=== PATIENT | female | born 1970 | race Two or more races ===

== ENCOUNTER 2023-12-18 16:12 | Outpatient (AMB) | payer MEDICAID, SELFPAY ==
--- NOTE | 2023-12-18 16:10 | PD.ORTHCLVIS ---
Med/Allergies Allergies & Medications Allergies No Known Allergies Allergy (Verified 12/07/23 08:30) Subjective Visit Visit for: new patient and knee (BILATERAL) Immunization / Flu Flu Vaccine in the Last 12 Months: Yes Flu Vaccine Exclusion Criteria: Already Received History of Present Illness Chief complaint: BILATERAL KNEE PAIN Patient is a pleasant 53-year-old female with bilateral knee pain worse on the left. This been ongoing for several years. She has tried formal physical therapy as well as over 8 injections in both knees. She is also tried anti-inflammatories. The pain is affecting her quality life and happiness. She reports that her knees are curving inward and it is making her life miserable. Personal History Occupation: [employer] Hobbies: WALKING Pain Pain level (0-10): 8 Pain duration: CONSTANT Pain location: inside (medial) and outside (lateral) Pain quality: sharp, dull and aching Pain timing: night, increases with activity and stairs Associated signs & symptoms: weakness and none Treatments Number of previous injections: 8 Improvement with previous injections: No Improvement with PT: No Improvement with NSAIDS: no Review of Systems Review of Systems: All systems negative unless otherwise noted in HPI. Exam Exam Xrays from [facility] demonstrate varus deformity and bone and bone arthritis. There is complete obliteration of the medial joint space on the left Assessment and Plan Problem List (1) Degenerative arthritis of knee, bilateral: Status: Acute Plan: Patient is a pleasant 53-year-old female with bilateral knee pain and bilateral knee arthritis of significant severity. The pain is affecting her quality life and happiness. We discussed nonoperative and operative options. Given her failure conservative treatment including physical therapy, anti-inflammatories, and injections, we discussed total knee replacement is a reasonable option. The left side hurts her more significantly and we will thus start on that side. The nature and purpose of the total knee replacement, alternative method(s) of treatment, the material risks involved, and the possibility of complications were fully explained to the patient. The patient does NOT have any of the following contraindications to TKA: - Active infection of the knee joint, OR - Active systemic bacteremia, OR - Active skin infection or open wound at surgical site, OR - Neuropathic arthritis, OR - Severe, rapidly progressive neurological disease, OR - Severe medical condition that makes risks of surgery outweigh the potential benefit The patient was told the most common risks and complications associated with a total knee replacement include, but are not limited to: blood clots in the leg, fatal pulmonary embolism, dislocation of the prosthesis, intraoperative and postoperative fractures of the femur or tibia, infection, failure of the prosthesis or grafting materials, complications from anesthesia, reactions to blood transfusions, postoperative leg length inequality, instability of the knee replacement, nerve damage or injury, vascular injury, delayed wound healing, infection, other injury or even . In addition, there are risks associated with anesthesia given during this operation. Also, the patient was told that after undergoing a total knee replacement there may still be persistent pain or disability. The patient was informed that the success of this operation in part depends upon the mechanical devices which are going to be implanted and that these devices can fail or malfunction, and may need to be repaired or replaced and there are no guarantees as to the longevity of this device or its parts and that it or its parts could fail prematurely. The patient was also notified that during the course of surgery, there may be a need to use bone graft from donors, and that any bone graft used will be carefully screened for communicable diseases, including AIDS, hepatitis, Zion-Creutzfeldt, or other diseases, but despite the screening procedures, there is a small chance that they could contract one of these diseases. Finally, the patient was asked to follow completely and fully with all advice and recommended treatments, and that recovery and ultimate outcome are affected by their compliance with recommended treatment. We discussed the risks, benefits and treatment alternatives, and the patient is interested in proceeding with surgery. We will try to set this up as expeditiously as possible. Past Medical History Past Medical History Have you ever been diagnosed with any of the following: Cardiology Problems Hypercholesterolemia: Yes Respiratory Problems Smoking: No Smoking Exposure: No Stomache/Intestinal Problems Gastroesophageal Reflux Disease: Yes Musculoskeletal Problems Arthritis: Yes Blood Problems Anemia: Yes
--- NOTE | 2023-12-18 16:13 | ORTHONT_ITS ---
Med/Allergies Allergies & Medications Allergies No Known Allergies Allergy (Verified 12/07/23 08:30) Subjective Visit Visit for: follow up visit, knee and x-rays Immunization / Flu Flu Vaccine in the Last 12 Months: No Flu Vaccine Exclusion Criteria: No Exclusion Criteria History of Present Illness Chief complaint: TELEMED XRAYS Patient is a pleasant 53-year-old female with bilateral knee pain worse on the left. This been ongoing for several years. She has tried formal physical therapy as well as over 8 injections in both knees. She is also tried anti- inflammatories. The pain is affecting her quality life and happiness. She reports that her knees are curving inward and it is making her life miserable. Personal History Occupation: [employer] Hobbies: WALKING Pain Pain level (0-10): 8 Pain duration: ALL DAY Pain location: inside (medial), outside (lateral), anterior and posterior Pain quality: sharp Pain timing: increases with activity Associated signs & symptoms: numbness, weakness and stiffness Ambulatory data Ambulatory device: none Treatments Number of previous injections: 8 Improvement with previous injections: No Improvement with PT: No Improvement with NSAIDS: n/a Review of Systems Review of Systems: All systems negative unless otherwise noted in HPI. Assessment and Plan Problem List (1) Degenerative arthritis of knee, bilateral: Status: Acute Plan: Patient is a pleasant 53-year-old female with bilateral knee pain and bilateral knee arthritis of significant severity. The pain is affecting her quality life and happiness. We discussed nonoperative and operative options. Given her failure conservative treatment including physical therapy, anti-inflammatories, and injections, we discussed total knee replacement is a reasonable option. The left side hurts her more significantly and we will thus start on that side. The nature and purpose of the total knee replacement, alternative method(s) of treatment, the material risks involved, and the possibility of complications were fully explained to the patient. The patient does NOT have any of the following contraindications to TKA: - Active infection of the knee joint, OR - Active systemic bacteremia, OR - Active skin infection or open wound at surgical site, OR - Neuropathic arthritis, OR - Severe, rapidly progressive neurological disease, OR - Severe medical condition that makes risks of surgery outweigh the potential benefit The patient was told the most common risks and complications associated with a total knee replacement include, but are not limited to: blood clots in the leg, fatal pulmonary embolism, dislocation of the prosthesis, intraoperative and postoperative fractures of the femur or tibia, infection, failure of the prosthesis or grafting materials, complications from anesthesia, reactions to blood transfusions, postoperative leg length inequality, instability of the knee replacement, nerve damage or injury, vascular injury, delayed wound healing, infection, other injury or even . In addition, there are risks associated with anesthesia given during this operation. Also, the patient was told that after undergoing a total knee replacement there may still be persistent pain or disability. The patient was informed that the success of this operation in part depends upon the mechanical devices which are going to be implanted and that these devices can fail or malfunction, and may need to be repaired or replaced and there are no guarantees as to the longevity of this device or its parts and that it or its parts could fail prematurely. The patient was also notified that during the course of surgery, there may be a need to use bone graft from donors, and that any bone graft used will be carefully screened for communicable diseases, including AIDS, hepatitis, Zion-Creutzfeldt, or other diseases, but despite the screening procedures, there is a small chance that they could contract one of these diseases. Finally, the patient was asked to follow completely and fully with all advice and recommended treatments, and that recovery and ultimate outcome are affected by their compliance with recommended treatment. We discussed the risks, benefits and treatment alternatives, and the patient is interested in proceeding with surgery. We will try to set this up as expeditiously as possible. 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
== END 2023-12-18 16:15 | disposition home or self-care (01) ==
LOC: HODSRG 16:12
PROVIDERS: PCP Family Medicine; Referring Provider Family Medicine; Supervising Provider Orthopaedic Surgery Adult Reconstructive Orthopaedic Surgery; Visit Provider Orthopaedic Surgery Adult Reconstructive Orthopaedic Surgery
DX: M17.0 Bilateral primary osteoarthritis of knee (principal); M25.562 Pain in left knee; M25.561 Pain in right knee
CPT/HCPCS: 99212; 99213; G0463

== ENCOUNTER 2024-03-11 11:14 | Outpatient (AMB) | payer MEDICAID, SELFPAY ==
--- NOTE | 2024-03-11 11:34 | PD.ORTHCLVIS ---
Vital signs 03/11/24 11:35 Height 1.52 m Height Method Stated Weight 84.113 kg Weight Measurement Method Standing Scale BMI 36.3 BP 126/85 H Blood Pressure Source Automatic Cuff Blood Pressure Location Left Upper Arm Position Sitting Respiration 18 Pulse 68 Pulse Source Monitor Temp 97.5 F Temp Source Temporal Artery Scan Pulse Oximetry (%) 97 Oxygen Delivery Method Room Air Med/Allergies Allergies & Medications Allergies No Known Allergies Allergy (Verified 03/11/24 11:35) Medication Reconciliation Unobtainable 12/07/23 [History Confirmed 03/11/24] Exam Exam Patient is in no acute distress and is cooperative with the examination today. Breathing is nonlabored. In no respiratory distress. Bilateral extremities were evaluated and demonstrates sensation intact to light touch. Palpable pedal pulses are present. No significant edema is present. Bilateral hips were examined. The patient has no pain with log roll of the hips. Internal rotation to 30 degrees and external rotation to 30 degrees is painless. Negative FADIR. The left knee was examined. The left knee is in [varus] alignment. Range of motion from [0-115] degrees. Knee is stable to varus and valgus as well as AP translation with <5mm. Patient has a [negative] McMurrays. There is [no] pain with patellofemoral compression and [no] crepitus noted. The knee is [tender] to palpation [medially]. The right knee was also examined. The right knee is in [varus] alignment. Range of motion from [0-120] degrees. Knee is stable to varus and valgus as well as AP translation with <5mm. Patient has a [negative] McMurrays. There is [no] pain with patellofemoral compression and [no] crepitus noted. The knee is [tender] to palpation [medially]. Bilateral knee x-[facility] from [facility] were reviewed by me today. This demonstrates complete joint space obliteration medially as well as osteophytes. Assessment and Plan Problem List (1) Degenerative arthritis of knee, bilateral: Status: Acute Plan: Patient is a pleasant 53-year-old female with bilateral knee pain and bilateral knee arthritis of significant severity. The pain is affecting her quality life and happiness. We discussed nonoperative and operative options. Given her failure conservative treatment including physical therapy, anti-inflammatories, and injections, we discussed total knee replacement is a reasonable option. The left side hurts her more significantly and we will thus start on that side. The nature and purpose of the total knee replacement, alternative method(s) of treatment, the material risks involved, and the possibility of complications were fully explained to the patient. The patient does NOT have any of the following contraindications to TKA: - Active infection of the knee joint, OR - Active systemic bacteremia, OR - Active skin infection or open wound at surgical site, OR - Neuropathic arthritis, OR - Severe, rapidly progressive neurological disease, OR - Severe medical condition that makes risks of surgery outweigh the potential benefit The patient was told the most common risks and complications associated with a total knee replacement include, but are not limited to: blood clots in the leg, fatal pulmonary embolism, dislocation of the prosthesis, intraoperative and postoperative fractures of the femur or tibia, infection, failure of the prosthesis or grafting materials, complications from anesthesia, reactions to blood transfusions, postoperative leg length inequality, instability of the knee replacement, nerve damage or injury, vascular injury, delayed wound healing, infection, other injury or even . In addition, there are risks associated with anesthesia given during this operation. Also, the patient was told that after undergoing a total knee replacement there may still be persistent pain or disability. The patient was informed that the success of this operation in part depends upon the mechanical devices which are going to be implanted and that these devices can fail or malfunction, and may need to be repaired or replaced and there are no guarantees as to the longevity of this device or its parts and that it or its parts could fail prematurely. The patient was also notified that during the course of surgery, there may be a need to use bone graft from donors, and that any bone graft used will be carefully screened for communicable diseases, including AIDS, hepatitis, Zion-Creutzfeldt, or other diseases, but despite the screening procedures, there is a small chance that they could contract one of these diseases. Finally, the patient was asked to follow completely and fully with all advice and recommended treatments, and that recovery and ultimate outcome are affected by their compliance with recommended treatment. We discussed the risks, benefits and treatment alternatives, and the patient is interested in proceeding with surgery. We will try to set this up as expeditiously as possible. Office Procedures GNS Level of Care Nursing/Assessment Patient Status: Established Patient Nursing Assessment/Reassesment: Medication Reconciliation, Update PMH in EMR and Vital Signs Coordination of Care: Complex Care and Chronic Disease 1-5, Education Complex Pt/Fam, Consent,records obtained, informed consent, Results/Orders obtained and Staff clarify orders Special Needs: Language special needs Established Patient Charge Established Patient Point Assignment: 95 Established Patient Point Charge: EP Level 3 (80-115) MA Intake Visit Data Collection New Patient or Established: Established Patient (seen at [facility] within 3 years) Reason for Visit:: PRE OP Seen by Clinical Staff ONLY (RN/MA): No 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 PCP or OBGYN visit in last 3 months: Yes Hx Now: No Do You Feel Safe at Home: Yes Authorities Contacted: N/A Questionairres Past Medical History Past Medical History Have you ever been diagnosed with any of the following: Cardiology Problems Hypercholesterolemia: Yes Respiratory Problems Smoking: No Smoking Exposure: No Stomache/Intestinal Problems Gastroesophageal Reflux Disease: Yes Musculoskeletal Problems Arthritis: Yes Blood Problems Anemia: Yes Subjective Visit Visit for: follow up visit Immunization / Flu Flu Vaccine in the Last 12 Months: No Flu Vaccine Exclusion Criteria: No Exclusion Criteria History of Present Illness Chief complaint: bialteral knee pain Patient is a pleasant 53-year-old female with bilateral knee pain worse on the left. This been ongoing for several years. She has tried formal physical therapy as well as over 8 injections in both knees. She is also tried anti-inflammatories. The pain is affecting her quality life and happiness. She reports that her knees are curving inward and it is making her life miserable. Pain Pain level (0-10): 6 Pain duration: CONSTANT Pain location: inside (medial), outside (lateral) and anterior Pain quality: sharp and aching Pain timing: increases with activity Associated signs & symptoms: none Ambulatory data Ambulatory device: none Treatments Improvement with previous injections: No Improvement with PT: No Improvement with NSAIDS: no Review of Systems Review of Systems: All systems negative unless otherwise noted in HPI.
[2024-03-11 11:35] VITALS: BP 126/85; PULSE 68; RESP 18; TEMP 36.4; O2SAT 97; BMI 36.3
== END 2024-03-11 11:46 | disposition home or self-care (01) ==
LOC: HODSRG 11:14
PROVIDERS: Supervising Provider Orthopaedic Surgery Adult Reconstructive Orthopaedic Surgery; Visit Provider Orthopaedic Surgery Adult Reconstructive Orthopaedic Surgery
DX: M17.0 Bilateral primary osteoarthritis of knee (principal); M25.562 Pain in left knee; M25.561 Pain in right knee; E78.00 Pure hypercholesterolemia, unspecified
CPT/HCPCS: 99213; G0463

== ENCOUNTER → 2024-03-11 | Outpatient (CLI) | payer MEDICAID, SELFPAY ==
--- NOTE | 2024-03-11 | XR_ITS ---
Examination: CT left lower extremity, without contrast. 2-D sagittal reconstructions. 2-D coronal reconstructions. 3-D reconstructions. Date and time of exam:March 11, 2024 1409 hours INDICATIONS: Left knee pain beginning 2 years ago, primary osteoarthritis diagnosis left knee CTDI: vol (mGy):11.1 DLP: (mGycm):758 Technique: Multiple 1.25 mm axial sections of the left lower extremity without intravenous contrast have been obtained. 2-D sagittal and coronal reconstructions have been obtained. 3-D reconstructions have been obtained. Low dose protocols were performed. One or more of the following dose reduction techniques were used; automated exposure control, adjustment of the mA and/or KV according to patient size, use of iterative reconstruction technique. Findings: Moderate osteopenia Mild narrowing left hip joint No left hip fracture or dislocation, no avascular necrosis Severe narrowing medial joint space left knee Significant osteoarthritis lateral patellofemoral joints No fracture No avascular necrosis IMPRESSION: Severe narrowing medial joint space left knee
--- NOTE | 2024-03-11 | XR_ITS ---
Examination: Left knee 4 views TECHNIQUE: Standing AP oblique lateral axial left knee 4 views Exam date and time: March 11, 2024 1404 hours INDICATIONS: Left knee pain years. FINDINGS: Moderate to advanced tricompartment osteoarthritis, severe narrowing medial joint space left knee Significant osteoarthritis patellofemoral joint No fracture Moderate osteopenia IMPRESSION: Moderate to advanced tricompartment osteoarthritis, severe narrowing medial joint space
== END | disposition home or self-care (01) ==
LOC: CCTX 12:13
PROVIDERS: PCP Family Medicine; Referring Provider Orthopaedic Surgery Adult Reconstructive Orthopaedic Surgery; Visit Provider Orthopaedic Surgery Adult Reconstructive Orthopaedic Surgery
DX: M17.12 Unilateral primary osteoarthritis, left knee (principal); M25.862 Other specified joint disorders, left knee
CPT/HCPCS: 73564; 73700

== ENCOUNTER 2024-03-26 08:40 | Day surgery (SDC) | payer MEDICAID, SELFPAY ==
[2024-03-25 12:58] VITALS: BMI 36.1
[2024-03-25 15:16] LABS: Basophils % (Auto) 0 % (0-2.5); Eosinophils # (Auto) 0.1 Thou/mm3 (0.0-0.5); Eosinophils % (Auto) 1 % (0-10); Hematocrit 37.8 % (36.0-46.0); Hemoglobin 12.6 g/dL (12.0-16.0); Immature Granulocytes % (Auto) 0 % (0-0); Immature Granulocytes Auto 0.02 Thou/mm3 (0.00-0.00); Lymphocytes % (Auto) 31 % (10-50); Mean Corpuscular HGB Conc 33.3 g/dl (31.0-37.0); Mean Corpuscular Hemoglobin 30.8 pg (25.0-35.0); Mean Corpuscular Volume 92 fL (80-100); Monocytes # (Auto) 0.5 Thou/mm3 (0.0-0.8); Monocytes % (Auto) 8 % (0-12); Neutrophils # (Auto) 3.8 Thou/mm3 (1.8-7.7); Neutrophils % (Auto) 59 % (37-80); Nucleated Red Blood Cell % 0 /100 WBC (0); Platelet Count 194 Thou/mm3 (140-440); RDW Standard Deviation 43.6 fL (36.4-46.3); Red Blood Count 4.09 Miln/mm3 (4.00-5.20); White Blood Count 6.4 Thou/mm3 (3.6-11.0)
[2024-03-25 15:23] LABS: INR 0.9 (0.9-1.3); Partial Thromboplastin Time 25.9 Seconds (22.0-36.0); Prothrombin Time 10.4 Seconds (9.0-12.2)
[2024-03-25 15:26] LABS: Anion Gap 6 (7-16); BUN/Creatinine Ratio 20 Ratio (12-20); Blood Urea Nitrogen 14 mg/dL (9-23); Carbon Dioxide 29.6 mMol/L (20.0-31.0); Chloride 106 mMol/L (98-107); Creatinine (Component) 0.7 mg/dL (0.6-1.3); Estimated Creatinine Clearance 87.3 mL/min (>60); Glucose 92 mg/dL (74-106); Osmolality,Calculated 283 (275-295); Potassium 4.2 mMol/L (3.4-5.1); Sodium 142 mMol/L (136-145); eGFR > 60 See Note
[2024-03-26] VITALS (15 sets, daily range): BP systolic 111–160; BP diastolic 66–95; PULSE 61–72; RESP 12–20; TEMP 36.1–36.7; O2SAT 97–100; BMI 36.3; BMI 13.0
[2024-03-26] MEDS: ACETAMINOPHEN 325 MG TABLET 650 MG PO (09:23)
[2024-03-26] MEDS: PREGABALIN 75 MG CAPSULE PO (09:24)
[2024-03-26] MEDS: MELOXICAM 7.5 MG TABLET PO (09:24)
[2024-03-26] MEDS: RINGERS LACTATED 1000 ML 1,000 ML 20 ML IV (09:33)
--- NOTE | 2024-03-26 14:36 | ESOP_ITS ---
Date of Procedure 03/26/24 Pre Op Diagnosis left knee osteoarthritis Post Op Diagnosis left knee osteoarthritis Procedure left total knee replacement Findings full thickness cartilage loss Procedure Description Indication: The patient is a 53 year old who has a long history of left knee pain. X-rays show degenerative arthritis involving the knee. Over the past several years the patient has had increasing pain, progressive limitation in function. He has failed conservative measures including activity modification, physical therapy, injections, anti-inflammatories, and assistive devices. After a lengthy discussion of the risks and benefits, the patient presents now for total knee replacement. The nature and purpose of the total knee replacement, alternative method(s) of treatment, the material risks involved, and the possibility of complications were fully explained to the patient. The patient was told the most common risks and complications associated with a total knee replacement include, but are not limited to blood clots in the leg, fatal pulmonary embolism, dislocation of the prosthesis, intraoperative and postoperative fractures of the femur or tibia, infection, failure of the prosthesis or grafting materials, complications from anesthesia, reactions to blood transfusions, postoperative leg length inequality, instability of the knee replacement, nerve damage or injury, vascular injury, delayed wound healing, infections, other injury or even . In addition, there are risks associated with anesthesia given during this operation, temporary or permanent numbness on the skin lateral to the incision can be a complication unique to total knee surgery, and kneeling can be painful after knee replacement surgery. Also, the patient was told that after undergoing a total knee replacement there may still be pain or disability. We discussed with the patient that we will be using a robot-assisted technology. We discussed that there is a possibility of converting to manual instrumentation. The patient was informed that the success of this operation in part depends upon the mechanical devices which are going to be implanted and that these devices can fail or malfunction, and may need to be repaired or replaced and there are no guarantees as to the longevity of this device or its part and that it or its parts could fail prematurely. Finally, the patient was asked to follow completely and fully with all advice and recommended treatments, and that recovery and ultimate outcome are affected by their compliance with recommended treatment. Surgical technique: Patient was marked and consented in the pre-operative area. The patient was brought to the operating room and placed on the operating table in a supine position. Prior to positioning, a timeout procedure was performed between the surgeon, the anesthesiologist, and the nursing staff where the patient and the operative side were identified and confirmed. After adequate general anesthetic was obtained, the left lower extremity was prepped and draped in the usual sterile fashion. A weight based dose of Cefazolin were administered within 1 ho ur prior to incision. The robot was preregistered and calirated before the incision. The extremity was exsanguinated with an esmarch badge and tourniquet inflated to 250mmHg. A midline incision was made. A median parapatellar arthrotomy was made. The patella was subluxed laterally. A medial release was performed to expose the medial tibia. His femoral and tibial pins were placed through an intra incisional manner for both cases. Every effort was made to ensure that the distalmost aspect of the pin was hung in the second cortex. The arrays were then tightened several times to ensure that it was fixed for the remainder of the case. Both femoral and tibial checkpoints were then placed. We then went through the registration process of the bone. We then assessed the knee deformity and attempted to correct it. We also used the robot to aid in judging laxity in both extension and flexion. Final based on laxity and alignment we changed the preoperative assessment to obtain proper proper implant positioning and to correct deformity. Attention was then placed to the tibia. We made a tibial cut using the robot ensuring that both the MCL and the patella tendon were protected with retractors. We then went to the femur and made the posterior cut followed by the anterior cut and the anterior chamfer. The bone was then removed and we made a distal femur cut and a posterior chamfer cut. We verified all cuts. A trial reduction was performed with a size 4 femoral component and a size 3 keeled tibial component. The patella tracked centrally, and no lateral retinacular release was necessary. The trial implants were removed. The arrays, pins, and checkpoints were all removed. We performed a verification that all pins were removed. The cut bone surfaces were lavaged. A size 4 left femoral component, a size 3 keeled tibial component were impacted into position. The knee was felt to be well balanced in the sagittal and coronal plane. The final 3x10 mm cruciate-substituting articular insert was impacted into the tibial tray. The knee was brought out to full extension, flexed up to 120 degrees. It was stable to varus and valgus stress and appropriately balanced in flexion and extension. The wounds were copiously irrigated following deflation of tourniquet. The medial retinaculum was reapproximated with #1 vicryl and quill. The subcutaneous tissues were closed with 0 and 2-0 interrupted Vicryl. The skin was closed with 3-0 Monofilament V loc suture. A sterile dressing was applied. The patient was transferred to a bed and brought to recovery in stable condition. The patient tolerated the procedure well. There were no intraoperative complications. Sponge and needle counts were correct times 2. As the attending surgeon, I attest I was present and performed the entire operation. 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
--- NOTE | 2024-03-26 14:40 | XR_ITS ---
Examination: Left knee 2 views Technique one AP lateral left knee 2 views Exam date and time: March 26, 2024 1532 hours INDICATIONS: Postop knee replacement. FINDINGS: Total left knee arthroplasty. Satisfactory alignment No fracture IMPRESSION: Total left knee arthroplasty with satisfactory alignment
--- NOTE | 2024-03-26 14:58 | SUR.PHASEI ---
1457 Patient arrived to recovery resting comfortably in [facility], on oxygen 6L via oxy mask with an oral airway in place, breathing unlabored, vital signs stable, dressing intact to left knee; prineo, telfa, abd, webril, andreas wraps, no bleeding noted, patient has good circulation to left lower extremity; skin color normal for patient and warm to touch, lung sounds clear upon auscultation, report received from Dr. Orosco and Carson MOORE
--- NOTE | 2024-03-26 15:35 | SUR.PHASEI ---
1535 XRAY complete per MD order
[2024-03-26] MEDS: HYDROmorphone INJ 2 MG/ML VIAL 0.4 MG IV (16:14)
[2024-03-26] MEDS: ACETAMINOPHEN IVPB 1,000 MG/100 ML VIAL 250 MG IV (16:15)
[2024-03-26] MEDS: CYCLObenzaPRINE 5 MG TABLET 10 MG PO (16:19)
--- NOTE | 2024-03-26 17:21 | SUR.PHASEII ---
patient cleared by physical therapy to proceed with discharge
--- NOTE | 2024-03-26 17:55 | SUR.PHASEII ---
1755 Patient meets discharge criteria from recovery, awake and alert, breathing unlabored, vital signs stable, dressing intact; no bleeding noted, per patient her pain is tolerable, patient ate a dinner tray; tolerated well, patient voided in the restroom prior to discharge, patient assisted with dressing into her clothing by this repairer typewriter, patient signed limited proficiency statement for her son to embossing press operator apprentice [place] to her, discharge instructions given to patient and patients son, son embossing press operator apprentice and signed discharge instructions. Patient given all her belongings prior to discharge, transported via wheelchair and left in a private vehicle.
== END 2024-03-26 17:55 | disposition home or self-care (01) ==
PROVIDERS: PCP Family Medicine; Referring Provider Orthopaedic Surgery Adult Reconstructive Orthopaedic Surgery; Visit Provider Orthopaedic Surgery Adult Reconstructive Orthopaedic Surgery
PROC: (CPT 27447; principal; 2024-03-26 13:15)
DX: M17.12 Unilateral primary osteoarthritis, left knee (principal); E78.00 Pure hypercholesterolemia, unspecified; K21.9 Gastro-esophageal reflux disease without esophagitis; D64.9 Anemia, unspecified
CPT/HCPCS: 27447; 20985; 36415; 73560; 80048; 85025; 85610; 85730; 97162; A4217; C1713; C1776; J0131; J0690; J1100; J1885; J2250; J2405; J2704; J2795; J3010; J3490; J7030; J7120; J7999; A4648; A4649; A9270

== ENCOUNTER 2024-04-01 10:22 | Outpatient (AMB) | payer MEDICAID, SELFPAY ==
[2024-04-01 10:46] VITALS: BP 151/87; PULSE 106; RESP 19; TEMP 36.1; O2SAT 95; BMI 36.0
--- NOTE | 2024-04-01 10:46 | PD.ORTHCLVIS ---
Vital signs 04/01/24 10:46 Height 1.52 m Height Method Stated Weight 83.178 kg Weight Measurement Method Standing Scale BMI 36.0 BP 151/87 H Blood Pressure Source Automatic Cuff Blood Pressure Location Left Upper Arm Position Sitting Respiration 19 Pulse 106 H Pulse Source Monitor Temp 96.9 F Temp Source Temporal Artery Scan Pulse Oximetry (%) 95 Oxygen Delivery Method Room Air Med/Allergies Allergies & Medications Allergies No Known Allergies Allergy (Verified 04/01/24 10:47) Medication Reconciliation alendronate 70 mg effervescent tablet 70 mg PO QWEEK 03/14/24 [History Confirmed 04/01/24] calcium 600 mg (as carbonate)-vit D3 5 mcg (200 unit)-minerals tablet (Calcium 600 + Minerals) 1 tab PO BID 03/14/24 [History Confirmed 04/01/24] ferrous sulfate 325 mg (65 mg iron) tablet 325 mg PO QDAY 03/14/24 [History Confirmed 04/01/24] tamsulosin 0.4 mg capsule (Flomax) 0.4 mg PO QDAY 03/14/24 [History Confirmed 04/01/24] acetaminophen 500 mg tablet (Acetaminophen Extra Strength) 1,000 mg (2 x 500 mg) PO Q6H PRN pain #90 tabs 03/26/24 [Rx Confirmed 04/01/24] aspirin 81 mg tablet,delayed release 81 mg PO BID #60 tabs 03/26/24 [Rx Confirmed 04/01/24] doxycycline hyclate 100 mg tablet 100 mg PO BID #14 tabs 03/26/24 [Rx Confirmed 04/01/24] gabapentin 300 mg capsule 300 mg PO .qhs #30 caps 03/26/24 [Rx Confirmed 04/01/24] oxycodone 5 mg tablet 5 mg PO Q6H PRN pain #28 tabs 03/26/24 [Rx Confirmed 04/01/24] sennosides 8.6 mg-docusate sodium 50 mg tablet (Senna-S) 1 tab-cap PO QDAY #30 tabs 03/26/24 [Rx Confirmed 04/01/24] cyclobenzaprine 5 mg tablet 5 mg PO TID PRN muscle spasm #45 tabs 04/01/24 [Rx] Exam Exam Patient is in no acute distress and is cooperative with the examination today. Breathing is nonlabored. In no respiratory distress. Bilateral extremities were evaluated and demonstrates sensation intact to light touch. Palpable pedal pulses are present. No significant edema is present. Bilateral hips were examined. The patient has no pain with log roll of the hips. Internal rotation to 30 degrees and external rotation to 30 degrees is painless. Negative FADIR. Left knee incision is clean dry and intact. Assessment and Plan Problem List (1) Degenerative arthritis of knee, bilateral: Status: Acute Plan: Patient is a pleasant 53-year-old female with bilateral knee pain and bilateral knee arthritis of significant severity. She is doing well status post left total knee replacement. She is using a walker. She should start physical therapy. Will see her back in approximately 6 weeks for routine follow-up with x-rays Office Procedures GNS Level of Care Nursing/Assessment Patient Status: Established Patient Nursing Assessment/Reassesment: Medication Reconciliation, Update PMH in EMR and Vital Signs Coordination of Care: Complex Care and Chronic Disease 1-5, Education Complex Pt/Fam, Consent,records obtained, informed consent, Results/Orders obtained and Staff clarify orders Established Patient Charge Established Patient Point Assignment: 95 Established Patient Point Charge: EP Level 3 (80-115) MA Intake Visit Data Collection New Patient or Established: Established Patient (seen at [facility] within 3 years) Reason for Visit:: 2 WEEK L TKA FOLLOW UP Seen by Clinical Staff ONLY (RN/MA): No R&D Lab Technician Required: Yes PCP or OBGYN visit in last 3 months: Yes Hx Now: No Do You Feel Safe at Home: Yes Authorities Contacted: N/A Questionairres Past Medical History Past Medical History Have you ever been diagnosed with any of the following: Neurological Problems Seizures: No Cardiology Problems Hypercholesterolemia: Yes Congestive Heart Failure: No Respiratory Problems Chronic Obstructive Pulmonary Disease (COPD): No Asthma: Yes Smoking: No Smoking Exposure: No Stomache/Intestinal Problems Hepatitis: No Ulcer: Yes Gastroesophageal Reflux Disease: Yes Genital/Urinary Problems Renal Disease: No Kidney Stones: Yes Reproductive Problems Previous Pregnancies: Yes Musculoskeletal Problems Arthritis: Yes Osteoporosis: Yes Endocrine Problems Diabetes Mellitus Type 1: No Diabetes Mellitus Type 2: No Blood Problems Anemia: Yes Other Problems Hospitalization: No Shingles: No Blood Transfusions: No Blood Transfusion Reaction: No Anesthesia Reactions: Yes (fainted) Chicken Pox: Yes Cancer: No Subjective Visit Visit for: follow up visit, post op #1 and knee (LEFT) Immunization / Flu Flu Vaccine in the Last 12 Months: No Flu Vaccine Exclusion Criteria: No Exclusion Criteria History of Present Illness Chief complaint: Left knee pain Patient is doing well status post left total knee replacement. She is 2 weeks postop. Incisions is clean dry and intact. Pain Pain level (0-10): 6 Pain duration: ON AND OFF Pain location: anterior Pain quality: aching Pain timing: increases with activity Associated signs & symptoms: numbness Ambulatory data Ambulatory device: walker Treatments Improvement with previous injections: No Improvement with PT: No Improvement with NSAIDS: no Review of Systems Review of Systems: All systems negative unless otherwise noted in HPI.
== END 2024-04-01 11:02 | disposition home or self-care (01) ==
PROVIDERS: Supervising Provider Orthopaedic Surgery Adult Reconstructive Orthopaedic Surgery; Visit Provider Orthopaedic Surgery Adult Reconstructive Orthopaedic Surgery
DX: M17.0 Bilateral primary osteoarthritis of knee (principal); M25.562 Pain in left knee; M25.561 Pain in right knee; E78.00 Pure hypercholesterolemia, unspecified; K21.9 Gastro-esophageal reflux disease without esophagitis; Z96.652 Presence of left artificial knee joint
CPT/HCPCS: 99213; G0463

== ENCOUNTER 2024-05-06 10:28 | Outpatient (AMB) | payer MEDICAID, SELFPAY ==
[2024-05-06 11:11] VITALS: BP 123/78; PULSE 80; RESP 18; TEMP 36.1; O2SAT 96; BMI 36.8
--- NOTE | 2024-05-06 11:11 | PD.ORTHCLVIS ---
Vital signs 05/06/24 11:11 Height 1.52 m Height Method Stated Weight 85.077 kg Weight Measurement Method Standing Scale BMI 36.8 BP 123/78 Blood Pressure Source Automatic Cuff Blood Pressure Location Left Upper Arm Position Sitting Respiration 18 Pulse 80 Pulse Source Monitor Temp 97.0 F Temp Source Temporal Artery Scan Pulse Oximetry (%) 96 Oxygen Delivery Method Room Air Med/Allergies Allergies & Medications Allergies No Known Allergies Allergy (Verified 05/06/24 11:13) Medication Reconciliation alendronate 70 mg effervescent tablet 70 mg PO QWEEK 03/14/24 [History Confirmed 05/06/24] calcium 600 mg (as carbonate)-vit D3 5 mcg (200 unit)-minerals tablet (Calcium 600 + Minerals) 1 tab PO BID 03/14/24 [History Confirmed 05/06/24] ferrous sulfate 325 mg (65 mg iron) tablet 325 mg PO QDAY 03/14/24 [History Confirmed 05/06/24] tamsulosin 0.4 mg capsule (Flomax) 0.4 mg PO QDAY 03/14/24 [History Confirmed 05/06/24] acetaminophen 500 mg tablet (Acetaminophen Extra Strength) 1,000 mg (2 x 500 mg) PO Q6H PRN pain #90 tabs 03/26/24 [Rx Confirmed 05/06/24] aspirin 81 mg tablet,delayed release 81 mg PO BID #60 tabs 03/26/24 [Rx Confirmed 05/06/24] doxycycline hyclate 100 mg tablet 100 mg PO BID #14 tabs 03/26/24 [Rx Confirmed 05/06/24] gabapentin 300 mg capsule 300 mg PO .qhs #30 caps 03/26/24 [Rx Confirmed 05/06/24] oxycodone 5 mg tablet 5 mg PO Q6H PRN pain #28 tabs 03/26/24 [Rx Confirmed 05/06/24] sennosides 8.6 mg-docusate sodium 50 mg tablet (Senna-S) 1 tab-cap PO QDAY #30 tabs 03/26/24 [Rx Confirmed 05/06/24] cyclobenzaprine 5 mg tablet 5 mg PO TID PRN muscle spasm #45 tabs 04/01/24 [Rx Confirmed 05/06/24] Exam Exam Patient is in no acute distress and is cooperative with the examination today. Patient has a normal mood and affect. Breathing is nonlabored. In no respiratory distress. Bilateral extremities were evaluated and demonstrates sensation intact to light touch. Palpable pedal pulses are present. No significant edema is present. Left knee incision is clean dry intact Assessment and Plan Problem List (1) Degenerative arthritis of knee, bilateral: Status: Acute Plan: Patient is a pleasant 53-year-old female with bilateral knee pain and bilateral knee arthritis of significant severity. She is doing well status post left total knee replacement. S She should transition to outpatient physical therapy Office Procedures GNS Level of Care Nursing/Assessment Patient Status: Established Patient Nursing Assessment/Reassesment: Medication Reconciliation, Update PMH in EMR and Vital Signs Coordination of Care: Complex Care and Chronic Disease 1-5, Education Complex Pt/Fam, Consent,records obtained, informed consent, Results/Orders obtained and Staff clarify orders Established Patient Charge Established Patient Point Assignment: 95 Established Patient Point Charge: EP Level 3 (80-115) MA Intake Visit Data Collection New Patient or Established: Established Patient (seen at [facility] within 3 years) Reason for Visit:: 6 WEEK POST OP Seen by Clinical Staff ONLY (RN/MA): No School Library Media Specialist Required: Yes PCP or OBGYN visit in last 3 months: Yes Hx Now: No Do You Feel Safe at Home: Yes Authorities Contacted: N/A Questionairres Past Medical History Past Medical History Have you ever been diagnosed with any of the following: Neurological Problems Seizures: No Cardiology Problems Hypercholesterolemia: Yes Congestive Heart Failure: No Respiratory Problems Chronic Obstructive Pulmonary Disease (COPD): No Asthma: Yes Smoking: No Smoking Exposure: No Stomache/Intestinal Problems Hepatitis: No Ulcer: Yes Gastroesophageal Reflux Disease: Yes Genital/Urinary Problems Renal Disease: No Kidney Stones: Yes Reproductive Problems Previous Pregnancies: Yes Musculoskeletal Problems Arthritis: Yes Osteoporosis: Yes Endocrine Problems Diabetes Mellitus Type 1: No Diabetes Mellitus Type 2: No Blood Problems Anemia: Yes Other Problems Hospitalization: No Shingles: No Blood Transfusions: No Blood Transfusion Reaction: No Anesthesia Reactions: Yes (fainted) Chicken Pox: Yes Cancer: No Subjective Visit Visit for: follow up visit and knee Immunization / Flu Flu Vaccine in the Last 12 Months: No Flu Vaccine Exclusion Criteria: No Exclusion Criteria History of Present Illness Chief complaint: Left total knee replacement Patient is doing well status post left total knee replacement 6 weeks ago. She should start outpatient physical therapy as she never got a transition for some reason. She has minimal pain Pain Pain level (0-10): 5 Pain duration: ALL DAY Pain location: anterior Pain quality: dull and aching Ambulatory data Ambulatory device: walker Treatments Improvement with previous injections: No Improvement with PT: No Improvement with NSAIDS: no Review of Systems Review of Systems: All systems negative unless otherwise noted in HPI.
--- NOTE | 2024-05-06 11:19 | XR_ITS ---
Examination: Left knee 4 views TECHNIQUE: Standing AP oblique lateral axial left knee 4 views Exam date and time: May 06, 2024 1143 hours INDICATIONS: Left knee pain 8 years. FINDINGS: Moderate osteopenia. Total left knee arthroplasty. Satisfactory alignment. No fracture. No loosening of the prosthetic components IMPRESSION: Total left knee arthroplasty with satisfactory alignment
== END 2024-05-06 11:34 | disposition home or self-care (01) ==
LOC: HODSRG 10:28
PROVIDERS: Supervising Provider Orthopaedic Surgery Adult Reconstructive Orthopaedic Surgery; Visit Provider Orthopaedic Surgery Adult Reconstructive Orthopaedic Surgery
DX: M17.0 Bilateral primary osteoarthritis of knee (principal); Z96.652 Presence of left artificial knee joint; E78.00 Pure hypercholesterolemia, unspecified; J45.909 Unspecified asthma, uncomplicated
CPT/HCPCS: 73564; 99213; G0463

== ENCOUNTER 2024-06-17 09:41 | Outpatient (AMB) | payer MEDICAID, SELFPAY ==
[2024-06-17 10:06] VITALS: BP 120/80; PULSE 71; RESP 18; TEMP 36.3; O2SAT 96; BMI 37.9
--- NOTE | 2024-06-17 10:06 | PD.ORTHCLVIS ---
Vital signs 06/17/24 10:06 Height 1.52 m Height Method Stated Weight 87.628 kg Weight Measurement Method Standing Scale BMI 37.9 BP 120/80 Blood Pressure Source Automatic Cuff Blood Pressure Location Right Upper Arm Position Sitting Respiration 18 Pulse 71 Pulse Source Monitor Temp 97.4 F Temp Source Temporal Artery Scan Pulse Oximetry (%) 96 Oxygen Delivery Method Room Air Med/Allergies Allergies & Medications Allergies No Known Allergies Allergy (Verified 06/17/24 10:07) Medication Reconciliation alendronate 70 mg effervescent tablet 70 mg PO QWEEK 03/14/24 [History Confirmed 06/17/24] calcium 600 mg (as carbonate)-vit D3 5 mcg (200 unit)-minerals tablet (Calcium 600 + Minerals) 1 tab PO BID 03/14/24 [History Confirmed 06/17/24] ferrous sulfate 325 mg (65 mg iron) tablet 325 mg PO QDAY 03/14/24 [History Confirmed 06/17/24] tamsulosin 0.4 mg capsule (Flomax) 0.4 mg PO QDAY 03/14/24 [History Confirmed 06/17/24] acetaminophen 500 mg tablet (Acetaminophen Extra Strength) 1,000 mg (2 x 500 mg) PO Q6H PRN pain #90 tabs 03/26/24 [Rx Confirmed 06/17/24] aspirin 81 mg tablet,delayed release 81 mg PO BID #60 tabs 03/26/24 [Rx Confirmed 06/17/24] doxycycline hyclate 100 mg tablet 100 mg PO BID #14 tabs 03/26/24 [Rx Confirmed 06/17/24] gabapentin 300 mg capsule 300 mg PO .qhs #30 caps 03/26/24 [Rx Confirmed 06/17/24] oxycodone 5 mg tablet 5 mg PO Q6H PRN pain #28 tabs 03/26/24 [Rx Confirmed 06/17/24] sennosides 8.6 mg-docusate sodium 50 mg tablet (Senna-S) 1 tab-cap PO QDAY #30 tabs 03/26/24 [Rx Confirmed 06/17/24] cyclobenzaprine 5 mg tablet 5 mg PO TID PRN muscle spasm #45 tabs 04/01/24 [Rx Confirmed 06/17/24] Exam Exam Patient is in no acute distress and is cooperative with the examination today. Patient has a normal mood and affect. Breathing is nonlabored. In no respiratory distress. Bilateral extremities were evaluated and demonstrates sensation intact to light touch. Palpable pedal pulses are present. No significant edema is present. Left knee incision is clean dry intact. Range of motion 0 to 105 degrees X-rays demonstrate a cementless total knee replacement in good alignment and position Assessment and Plan Problem List (1) Degenerative arthritis of knee, bilateral: Status: Acute Plan: Patient is a pleasant 53-year-old female with bilateral knee pain and bilateral knee arthritis of significant severity. She is doing well status post left total knee replacement. She is doing well status post total knee replacement Office Procedures GNS Level of Care Nursing/Assessment Patient Status: Established Patient Nursing Assessment/Reassesment: Medication Reconciliation, Update PMH in EMR and Vital Signs Coordination of Care: Complex Care and Chronic Disease 1-5, Education Complex Pt/Fam, Consent,records obtained, informed consent, Lab and Imaging orders, Results/Orders obtained and Staff clarify orders Special Needs: Language special needs Established Patient Charge Established Patient Point Assignment: 110 Established Patient Point Charge: EP Level 3 (80-115) MA Intake Visit Data Collection New Patient or Established: Established Patient (seen at [facility] within 3 years) Reason for Visit:: RIGHT KNEE TKA FOLLOW UP Seen by Clinical Staff ONLY (RN/MA): No Verbal consent obtained for Telemed visit?: No 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 PCP or OBGYN visit in last 3 months: Yes Hx Now: No Do You Feel Safe at Home: Yes Authorities Contacted: N/A Questionairres Past Medical History Past Medical History Have you ever been diagnosed with any of the following: Neurological Problems Seizures: No Cardiology Problems Hypercholesterolemia: Yes Congestive Heart Failure: No Respiratory Problems Chronic Obstructive Pulmonary Disease (COPD): No Asthma: Yes Smoking: No Smoking Exposure: No Stomache/Intestinal Problems Hepatitis: No Ulcer: Yes Gastroesophageal Reflux Disease: Yes Genital/Urinary Problems Renal Disease: No Kidney Stones: Yes Reproductive Problems Previous Pregnancies: Yes Musculoskeletal Problems Arthritis: Yes Osteoporosis: Yes Endocrine Problems Diabetes Mellitus Type 1: No Diabetes Mellitus Type 2: No Blood Problems Anemia: Yes Other Problems Hospitalization: No Shingles: No Blood Transfusions: No Blood Transfusion Reaction: No Anesthesia Reactions: Yes (fainted) Chicken Pox: Yes Cancer: No Subjective Visit Visit for: follow up visit and knee Immunization / Flu Flu Vaccine in the Last 12 Months: Yes Flu Vaccine Exclusion Criteria: Already Received History of Present Illness Chief complaint: Right TKA 2 months follow up Patient is doing well status post left total knee replacement 12 weeks ago. She is still in outpatient physical therapy and She has minimal pain Personal History Occupation: [employer] flag PMH: BMI BMI Counceling provided: Yes Pain Pain level (0-10): 5 Pain duration: all day Pain location: outside (lateral) and anterior Pain quality: dull and aching Pain timing: increases with activity Associated signs & symptoms: other (specify) (swelling ) Ambulatory data Ambulatory device: none Treatments Improvement with previous injections: No Improvement with PT: No Improvement with NSAIDS: no Review of Systems Review of Systems: All systems negative unless otherwise noted in HPI.
== END 2024-06-17 10:30 | disposition home or self-care (01) ==
PROVIDERS: Supervising Provider Orthopaedic Surgery Adult Reconstructive Orthopaedic Surgery; Visit Provider Orthopaedic Surgery Adult Reconstructive Orthopaedic Surgery
DX: M17.0 Bilateral primary osteoarthritis of knee (principal); M25.562 Pain in left knee; M25.561 Pain in right knee; Z96.652 Presence of left artificial knee joint; E78.00 Pure hypercholesterolemia, unspecified; K21.9 Gastro-esophageal reflux disease without esophagitis
CPT/HCPCS: 99213; G0463

== ENCOUNTER 2024-09-16 09:47 | Outpatient (AMB) | payer MEDICAID, SELFPAY ==
--- NOTE | 2024-09-16 09:56 | ORTHONT_ITS ---
Vital signs 09/16/24 10:01 Height 1.52 m Height Method Measured Weight 87.713 kg Weight Measurement Method Standing Scale BMI 38.0 BP 134/82 H Blood Pressure Source Automatic Cuff Blood Pressure Location Left Upper Arm Position Sitting Respiration 18 Pulse 66 Pulse Source Monitor Temp 97.4 F Temp Source Temporal Artery Scan Pulse Oximetry (%) 98 Oxygen Delivery Method Room Air Med/Allergies Allergies & Medications Allergies No Known Allergies Allergy (Verified 09/16/24 10:02) Medication Reconciliation alendronate 70 mg effervescent tablet 70 mg PO QWEEK 03/14/24 [History Confirmed 09/16/24] calcium 600 mg (as carbonate)-vit D3 5 mcg (200 unit)-minerals tablet (Calcium 600 + Minerals) 1 tab PO BID 03/14/24 [History Confirmed 09/16/24] ferrous sulfate 325 mg (65 mg iron) tablet 325 mg PO QDAY 03/14/24 [History Confirmed 09/16/24] tamsulosin 0.4 mg capsule (Flomax) 0.4 mg PO QDAY 03/14/24 [History Confirmed 09/16/24] acetaminophen 500 mg tablet (Acetaminophen Extra Strength) 1,000 mg (2 x 500 mg) PO Q6H PRN pain #90 tabs 03/26/24 [Rx Confirmed 09/16/24] aspirin 81 mg tablet,delayed release 81 mg PO BID #60 tabs 03/26/24 [Rx Confirmed 09/16/24] doxycycline hyclate 100 mg tablet 100 mg PO BID #14 tabs 03/26/24 [Rx Confirmed 09/16/24] gabapentin 300 mg capsule 300 mg PO .qhs #30 caps 03/26/24 [Rx Confirmed 09/16/24] oxycodone 5 mg tablet 5 mg PO Q6H PRN pain #28 tabs 03/26/24 [Rx Confirmed 09/16/24] sennosides 8.6 mg-docusate sodium 50 mg tablet (Senna-S) 1 tab-cap PO QDAY #30 tabs 03/26/24 [Rx Confirmed 09/16/24] cyclobenzaprine 5 mg tablet 5 mg PO TID PRN muscle spasm #45 tabs 04/01/24 [Rx Confirmed 09/16/24] Exam Exam Patient is in no acute distress and is cooperative with the examination today. Patient has a normal mood and affect. Breathing is nonlabored. In no respiratory distress. Bilateral extremities were evaluated and demonstrates sensation intact to light touch. Palpable pedal pulses are present. No significant edema is present. Left knee incision is clean dry intact. Range of motion 0 to 105 degrees Right knee is tender to palpation medially. There is varus deformity. Range of motion 0 to 105 degrees X-rays demonstrate a cementless total knee replacement in good alignment and position Assessment and Plan Problem List (1) Degenerative arthritis of knee, bilateral: Status: Acute Plan: Patient is a pleasant 53-year-old female with bilateral knee pain and bilateral knee arthritis of significant severity. She is doing well status post left total knee replacement. We will get new x-rays of both knees and send her anti-inflammatories for her right knee Office Procedures GNS Level of Care Nursing/Assessment Patient Status: Established Patient Nursing Assessment/Reassesment: Medication Reconciliation, Update PMH in EMR and Vital Signs Coordination of Care: Complex Care and Chronic Disease 1-5, Education Complex Pt/Fam, Consent,records obtained, informed consent, Lab and Imaging orders, Results/Orders obtained and Staff clarify orders Special Needs: Language special needs Established Patient Charge Established Patient Point Assignment: 110 Established Patient Point Charge: EP Level 3 (80-115) MA Intake Visit Data Collection New Patient or Established: Established Patient (seen at [facility] within 3 years) Reason for Visit:: LEFT KNEE TKA F/U Seen by Clinical Staff ONLY (RN/MA): No 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 PCP or OBGYN visit in last 3 months: Yes Hx Now: No Do You Feel Safe at Home: Yes Authorities Contacted: N/A Questionairres Past Medical History Past Medical History Have you ever been diagnosed with any of the following: Neurological Problems Seizures: No Cardiology Problems Hypercholesterolemia: Yes Congestive Heart Failure: No Respiratory Problems Chronic Obstructive Pulmonary Disease (COPD): No Asthma: Yes Smoking: No Smoking Exposure: No Stomache/Intestinal Problems Hepatitis: No Ulcer: Yes Gastroesophageal Reflux Disease: Yes Genital/Urinary Problems Renal Disease: No Kidney Stones: Yes Reproductive Problems Previous Pregnancies: Yes Musculoskeletal Problems Arthritis: Yes Osteoporosis: Yes Endocrine Problems Diabetes Mellitus Type 1: No Diabetes Mellitus Type 2: No Blood Problems Anemia: Yes Other Problems Hospitalization: No Shingles: No Blood Transfusions: No Blood Transfusion Reaction: No Anesthesia Reactions: Yes (fainted) Chicken Pox: Yes Cancer: No Subjective Visit Visit for: follow up visit and knee Immunization / Flu Flu Vaccine in the Last 12 Months: Yes Flu Vaccine Exclusion Criteria: Already Received History of Present Illness Chief complaint: LEFT KNEE TKA F/U Patient is doing well status post left total knee replacement 5 months ago. She reports the right knee which was not operated on is hurting her more. She would like to try anti-inflammatories for this. She reports she has some numbness and tingling that radiates from her buttocks down to her toes. We will get new x- rays of both knees Personal History Occupation: [email or web address] Red flag PMH: none BMI Counceling provided: Yes Pain Pain level (0-10): 10 Pain duration: all day Pain location: inside (medial) Pain quality: electric Pain timing: increases with activity Associated signs & symptoms: weakness Ambulatory data Ambulatory device: none Treatments Improvement with previous injections: No Improvement with PT: No Improvement with NSAIDS: no Review of Systems Review of Systems: All systems negative unless otherwise noted in HPI.
[2024-09-16 10:01] VITALS: BP 134/82; PULSE 66; RESP 18; TEMP 36.3; O2SAT 98; BMI 38.0
--- NOTE | 2024-09-16 10:07 | XR_ITS ---
Examination: Bilateral AP knees 2 views Right lateral knee left lateral knee 2 views Bilateral axial knees single view TECHNIQUE: Bilateral AP knees standing single view, bilateral PA knees standing single view flexion Standing right lateral knee left lateral knee 2 views Bilateral axial knees single view, total 5 views Date and time: September 16, 2024 1023 hours INDICATIONS: Bilateral knee pain months FINDINGS: Advanced narrowing medial joint space right knee Advanced osteoarthritis right patellofemoral joint No fracture Total left knee arthroplasty. Satisfactory alignment. No fracture. No loosening of the prosthetic components IMPRESSION: Advanced narrowing medial joint space right knee Advanced osteoarthritis right patellofemoral joint
== END 2024-09-16 10:11 | disposition home or self-care (01) ==
LOC: HODSRG 09:47
PROVIDERS: Supervising Provider Orthopaedic Surgery Adult Reconstructive Orthopaedic Surgery; Visit Provider Orthopaedic Surgery Adult Reconstructive Orthopaedic Surgery
DX: M17.0 Bilateral primary osteoarthritis of knee (principal); M25.562 Pain in left knee; M25.561 Pain in right knee; Z96.652 Presence of left artificial knee joint; E78.00 Pure hypercholesterolemia, unspecified; K21.9 Gastro-esophageal reflux disease without esophagitis
CPT/HCPCS: 73564; 99213; G0463

== ENCOUNTER 2024-10-14 14:45 | Outpatient (AMB) | payer MEDICAID, SELFPAY ==
[2024-10-14 14:53] VITALS: BP 125/72; PULSE 73; RESP 20; TEMP 36.5; O2SAT 96; BMI 37.7
--- NOTE | 2024-10-14 14:53 | PD.ORTHCLVIS ---
Vital signs 10/14/24 14:53 Height 1.52 m Height Method Measured Weight 87.146 kg Weight Measurement Method Standing Scale BMI 37.7 BP 125/72 Blood Pressure Source Automatic Cuff Blood Pressure Location Left Upper Arm Position Sitting Respiration 20 Pulse 73 Pulse Source Monitor Temp 97.7 F Temp Source Temporal Artery Scan Pulse Oximetry (%) 96 Oxygen Delivery Method Room Air Med/Allergies Allergies & Medications Allergies No Known Allergies Allergy (Verified 10/14/24 14:55) Medication Reconciliation alendronate 70 mg effervescent tablet 70 mg PO QWEEK 03/14/24 [History Confirmed 10/14/24] calcium 600 mg (as carbonate)-vit D3 5 mcg (200 unit)-minerals tablet (Calcium 600 + Minerals) 1 tab PO BID 03/14/24 [History Confirmed 10/14/24] ferrous sulfate 325 mg (65 mg iron) tablet 325 mg PO QDAY 03/14/24 [History Confirmed 10/14/24] tamsulosin 0.4 mg capsule (Flomax) 0.4 mg PO QDAY 03/14/24 [History Confirmed 10/14/24] acetaminophen 500 mg tablet (Acetaminophen Extra Strength) 1,000 mg (2 x 500 mg) PO Q6H PRN pain #90 tabs 03/26/24 [Rx Confirmed 10/14/24] aspirin 81 mg tablet,delayed release 81 mg PO BID #60 tabs 03/26/24 [Rx Confirmed 10/14/24] doxycycline hyclate 100 mg tablet 100 mg PO BID #14 tabs 03/26/24 [Rx Confirmed 10/14/24] gabapentin 300 mg capsule 300 mg PO .qhs #30 caps 03/26/24 [Rx Confirmed 10/14/24] oxycodone 5 mg tablet 5 mg PO Q6H PRN pain #28 tabs 03/26/24 [Rx Confirmed 10/14/24] sennosides 8.6 mg-docusate sodium 50 mg tablet (Senna-S) 1 tab-cap PO QDAY #30 tabs 03/26/24 [Rx Confirmed 10/14/24] cyclobenzaprine 5 mg tablet 5 mg PO TID PRN muscle spasm #45 tabs 04/01/24 [Rx Confirmed 10/14/24] meloxicam 7.5 mg tablet 7.5 mg PO QDAY #45 tabs 09/16/24 [Rx Confirmed 10/14/24] Exam Exam Patient is in no acute distress and is cooperative with the examination today. Patient has a normal mood and affect. Breathing is nonlabored. In no respiratory distress. Bilateral extremities were evaluated and demonstrates sensation intact to light touch. Palpable pedal pulses are present. No significant edema is present. Left knee incision is clean dry intact. Range of motion 0 to 105 degrees Right knee is tender to palpation medially. There is varus deformity. Range of motion 0 to 105 degrees X-rays demonstrate a cementless total knee replacement in good alignment and position Assessment and Plan Problem List (1) Degenerative arthritis of knee, bilateral: Status: Acute Plan: Patient is a pleasant 53-year-old female with bilateral knee pain and bilateral knee arthritis of significant severity. She is doing well status post left total knee replacement. She is doing well and we will have her in 6 months for routine followup Office Procedures GNS Level of Care Nursing/Assessment Patient Status: Established Patient Nursing Assessment/Reassesment: Medication Reconciliation, Update PMH in EMR and Vital Signs Coordination of Care: Complex Care and Chronic Disease 1-5, Education Complex Pt/Fam, Consent,records obtained, informed consent, Results/Orders obtained and Staff clarify orders Special Needs: Language special needs Established Patient Charge Established Patient Point Assignment: 95 Established Patient Point Charge: EP Level 3 (80-115) MA Intake Visit Data Collection New Patient or Established: Established Patient (seen at [facility] within 3 years) Reason for Visit:: LEFT KNEE TKA F/U Seen by Clinical Staff ONLY (RN/MA): No Marketing 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 PCP or OBGYN visit in last 3 months: Yes Hx Now: No Do You Feel Safe at Home: Yes Authorities Contacted: N/A Questionairres Past Medical History Past Medical History Have you ever been diagnosed with any of the following: Neurological Problems Seizures: No Cardiology Problems Hypercholesterolemia: Yes Congestive Heart Failure: No Respiratory Problems Chronic Obstructive Pulmonary Disease (COPD): No Asthma: Yes Smoking: No Smoking Exposure: No Stomache/Intestinal Problems Hepatitis: No Ulcer: Yes Gastroesophageal Reflux Disease: Yes Genital/Urinary Problems Renal Disease: No Kidney Stones: Yes Reproductive Problems Previous Pregnancies: Yes Musculoskeletal Problems Arthritis: Yes Osteoporosis: Yes Endocrine Problems Diabetes Mellitus Type 1: No Diabetes Mellitus Type 2: No Blood Problems Anemia: Yes Other Problems Hospitalization: No Shingles: No Blood Transfusions: No Blood Transfusion Reaction: No Anesthesia Reactions: Yes (fainted) Chicken Pox: Yes Cancer: No Subjective Visit Visit for: follow up visit and knee Immunization / Flu Flu Vaccine in the Last 12 Months: Yes Flu Vaccine Exclusion Criteria: Already Received History of Present Illness Chief complaint: LEFT KNEE TKA F/U Patient is doing well status post left total knee replacement 6 months ago. She reports the right knee which was not operated on is hurting her more. She would like to try anti-inflammatories for this. She reports she has some numbness and tingling that radiates from her buttocks down to her toes. We will get new x-rays of both knees Personal History Occupation: [employer] Red flag PMH: none BMI Counceling provided: Yes Pain Pain level (0-10): 10 Pain duration: all day Pain location: inside (medial) Pain quality: electric Pain timing: increases with activity Associated signs & symptoms: weakness Ambulatory data Ambulatory device: none Treatments Improvement with previous injections: No Improvement with PT: No Improvement with NSAIDS: no Review of Systems Review of Systems: All systems negative unless otherwise noted in HPI.
== END 2024-10-14 15:01 | disposition home or self-care (01) ==
LOC: HODSRG 14:45
PROVIDERS: Supervising Provider Orthopaedic Surgery Adult Reconstructive Orthopaedic Surgery; Visit Provider Orthopaedic Surgery Adult Reconstructive Orthopaedic Surgery
DX: M17.0 Bilateral primary osteoarthritis of knee (principal); M25.562 Pain in left knee; M25.561 Pain in right knee; Z96.652 Presence of left artificial knee joint; E78.00 Pure hypercholesterolemia, unspecified; K21.9 Gastro-esophageal reflux disease without esophagitis; R20.0 Anesthesia of skin; R20.2 Paresthesia of skin
CPT/HCPCS: 99213; G0463

== ENCOUNTER 2025-02-17 13:04 | Outpatient (AMB) | payer MEDICAID, SELFPAY ==
[2025-02-17 13:25] VITALS: BP 107/69; PULSE 74; RESP 18; TEMP 36.2; O2SAT 96; BMI 37.1
--- NOTE | 2025-02-17 13:25 | ORTHONT_ITS ---
Vital signs 02/17/25 13:25 Height 1.52 m Height Method Stated Weight 85.786 kg Weight Measurement Method Standing Scale BMI 37.1 BP 107/69 Blood Pressure Source Automatic Cuff Blood Pressure Location Left Upper Arm Position Sitting Respiration 18 Pulse 74 Pulse Source Monitor Temp 97.2 F Temp Source Temporal Artery Scan Pulse Oximetry (%) 96 Oxygen Delivery Method Room Air Med/Allergies Allergies & Medications Allergies No Known Allergies Allergy (Verified 02/17/25 13:26) Medication Reconciliation alendronate 70 mg effervescent tablet 70 mg PO QWEEK 03/14/24 [History Confirmed 02/17/25] calcium 600 mg (as carbonate)-vit D3 5 mcg (200 unit)-minerals tablet (Calcium 600 + Minerals) 1 tab PO BID 03/14/24 [History Confirmed 02/17/25] ferrous sulfate 325 mg (65 mg iron) tablet 325 mg PO QDAY 03/14/24 [History Confirmed 02/17/25] tamsulosin 0.4 mg capsule (Flomax) 0.4 mg PO QDAY 03/14/24 [History Confirmed 02/17/25] acetaminophen 500 mg tablet (Acetaminophen Extra Strength) 1,000 mg (2 x 500 mg) PO Q6H PRN pain #90 tabs 03/26/24 [Rx Confirmed 02/17/25] aspirin 81 mg tablet,delayed release 81 mg PO BID #60 tabs 03/26/24 [Rx Confirmed 02/17/25] doxycycline hyclate 100 mg tablet 100 mg PO BID #14 tabs 03/26/24 [Rx Confirmed 02/17/25] gabapentin 300 mg capsule 300 mg PO .qhs #30 caps 03/26/24 [Rx Confirmed 02/17/25] oxycodone 5 mg tablet 5 mg PO Q6H PRN pain #28 tabs 03/26/24 [Rx Confirmed 02/17/25] sennosides 8.6 mg-docusate sodium 50 mg tablet (Senna-S) 1 tab-cap PO QDAY #30 tabs 03/26/24 [Rx Confirmed 02/17/25] cyclobenzaprine 5 mg tablet 5 mg PO TID PRN muscle spasm #45 tabs 04/01/24 [Rx Confirmed 02/17/25] meloxicam 7.5 mg tablet 7.5 mg PO QDAY #45 tabs 09/16/24 [Rx Confirmed 02/17/25] Exam Exam Patient is in no acute distress and is cooperative with the examination today. Patient has a normal mood and affect. Breathing is nonlabored. In no respiratory distress. Bilateral extremities were evaluated and demonstrates sensation intact to light touch. Palpable pedal pulses are present. No significant edema is present. Left knee incision is clean dry intact. Range of motion 0 to 105 degrees Right knee is tender to palpation medially. There is varus deformity. Range of motion 0 to 105 degrees X-rays demonstrate a cementless total knee replacement in good alignment and position. She has severe [id number] arthritis on the right with varus deformity. Assessment and Plan Problem List (1) Degenerative arthritis of knee, bilateral: Status: Acute Plan: Patient is a pleasant 53-year-old female with bilateral knee pain and bilateral knee arthritis of significant severity. She is doing well status post left total knee replacement. She reports the right side is affecting her quality life Has failed injections anti-inflammatories and physical. We thus discussed total knee replacement as a reasonable option for the right The nature and purpose of the total knee replacement, alternative method(s) of treatment, the material risks involved, and the possibility of complications were fully explained to the patient. The patient does NOT have any of the following contraindications to TKA: - Active infection of the knee joint, OR - Active systemic bacteremia, OR - Active skin infection or open wound at surgical site, OR - Neuropathic arthritis, OR - Severe, rapidly progressive neurological disease, OR - Severe medical condition that makes risks of surgery outweigh the potential benefit The patient was told the most common risks and complications associated with a total knee replacement include, but are not limited to: blood clots in the leg, fatal pulmonary embolism, dislocation of the prosthesis, intraoperative and postoperative fractures of the femur or tibia, infection, failure of the prosthesis or grafting materials, complications from anesthesia, reactions to blood transfusions, postoperative leg length inequality, instability of the knee replacement, nerve damage or injury, vascular injury, delayed wound healing, infection, other injury or even . In addition, there are risks associated with anesthesia given during this operation. Also, the patient was told that after undergoing a total knee replacement there may still be persistent pain or disability. The patient was informed that the success of this operation in part depends upon the mechanical devices which are going to be implanted and that these devices can fail or malfunction, and may need to be repaired or replaced and there are no guarantees as to the longevity of this device or its parts and that it or its parts could fail prematurely. The patient was also notified that during the course of surgery, there may be a need to use bone graft from donors, and that any bone graft used will be carefully screened for communicable diseases, including AIDS, hepatitis, Zion-Creutzfeldt, or other diseases, but despite the screening procedures, there is a small chance that they could contract one of these diseases. Finally, the patient was asked to follow completely and fully with all advice and recommended treatments, and that recovery and ultimate outcome are affected by their compliance with recommended treatment. We discussed the risks, benefits and treatment alternatives, and the patient is interested in proceeding with surgery. We will try to set this up as expeditiously as possible. Office Procedures GNS Level of Care Nursing/Assessment Patient Status: Established Patient Nursing Assessment/Reassesment: Medication Reconciliation, Update PMH in EMR and Vital Signs Coordination of Care: Complex Care and Chronic Disease 1-5, Education Complex Pt/Fam, Consent,records obtained, informed consent, Results/Orders obtained and Staff clarify orders Established Patient Charge Established Patient Point Assignment: 95 Established Patient Point Charge: EP Level 3 (80-115) MA Intake Visit Data Collection New Patient or Established: Established Patient (seen at [facility] within 3 years) Reason for Visit:: LEFT KNEE TKA F/U Seen by Clinical Staff ONLY (RN/MA): No 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 PCP or OBGYN visit in last 3 months: Yes Hx Now: No Do You Feel Safe at Home: Yes Authorities Contacted: N/A Questionairres Past Medical History Past Medical History Have you ever been diagnosed with any of the following: Neurological Problems Seizures: No Cardiology Problems Hypercholesterolemia: Yes Congestive Heart Failure: No Respiratory Problems Chronic Obstructive Pulmonary Disease (COPD): No Asthma: Yes Smoking: No Smoking Exposure: No Stomache/Intestinal Problems Hepatitis: No Ulcer: Yes Gastroesophageal Reflux Disease: Yes Genital/Urinary Problems Renal Disease: No Kidney Stones: Yes Reproductive Problems Previous Pregnancies: Yes Musculoskeletal Problems Arthritis: Yes Osteoporosis: Yes Endocrine Problems Diabetes Mellitus Type 1: No Diabetes Mellitus Type 2: No Blood Problems Anemia: Yes Other Problems Hospitalization: No Shingles: No Blood Transfusions: No Blood Transfusion Reaction: No Anesthesia Reactions: Yes (fainted) Chicken Pox: Yes Cancer: No Subjective Visit Visit for: follow up visit and knee Immunization / Flu Flu Vaccine in the Last 12 Months: Yes Flu Vaccine Exclusion Criteria: Already Received History of Present Illness Chief complaint: LEFT KNEE TKA F/U Patient is doing well status post left total knee replacement 9 months ago. She reports the right knee which was not operated on is hurting her more. She reports she has some numbness and tingling that radiates from her buttocks down to her toes. She has tried injections with another surgeon on the right knee as well as anti- inflammatories and formal physical therapy. The pain is persistent on the right and we thus discussed total knee replacement as a reasonable option she has failed conservative treatment Personal History Occupation: [employer] Red flag PMH: none BMI Counceling provided: Yes Pain Pain level (0-10): 10 Pain duration: all day Pain location: inside (medial) Pain quality: electric Pain timing: increases with activity Associated signs & symptoms: weakness Ambulatory data Ambulatory device: none Treatments Improvement with previous injections: No Improvement with PT: No Improvement with NSAIDS: no Review of Systems Review of Systems: All systems negative unless otherwise noted in HPI.
== END 2025-02-17 13:35 | disposition home or self-care (01) ==
LOC: HODSRG 13:04
PROVIDERS: Supervising Provider Orthopaedic Surgery Adult Reconstructive Orthopaedic Surgery; Visit Provider Orthopaedic Surgery Adult Reconstructive Orthopaedic Surgery
DX: Z47.1 Aftercare following joint replacement surgery (principal); Z96.652 Presence of left artificial knee joint; M17.11 Unilateral primary osteoarthritis, right knee; M25.561 Pain in right knee; M25.562 Pain in left knee
CPT/HCPCS: 99213; G0463